=== PATIENT | female | born 1965 | race Asian ===

== ENCOUNTER → 2017-03-01 | Outpatient (CLI) | payer BC | LOC: MC.RAD 11:40 | DX: Z12.31 Encounter for screening mammogram for malignant neoplasm of breast (principal); N63 Unspecified lump in breast ==

== ENCOUNTER → 2017-03-08 | Outpatient (CLI) | payer BC | LOC: MC.RAD 03-07 10:30 | DX: R92.2 Inconclusive mammogram (principal); N63 Unspecified lump in breast ==

== ENCOUNTER → 2017-03-15 | Outpatient (CLI) | payer BC | LOC: MC.RAD 13:00 | DX: N63 Unspecified lump in breast (principal) ==

== ENCOUNTER → 2017-03-15 | Outpatient (CLI) | payer BC | LOC: ZCOL.LAB 15:14 | DX: Z01.89 Encounter for other specified special examinations (principal) ==

== ENCOUNTER → 2018-04-18 | Outpatient (CLI) | payer BC | LOC: MC.RAD 08:40 | DX: Z12.31 Encounter for screening mammogram for malignant neoplasm of breast (principal) ==

== ENCOUNTER → 2019-05-07 | Outpatient (CLI) | payer BC | LOC: MC.RAD 11:45 | DX: Z12.31 Encounter for screening mammogram for malignant neoplasm of breast (principal) ==

== ENCOUNTER → 2020-06-21 | Outpatient (CLI) | payer BC | LOC: MC.RAD 05-20 09:30 | DX: Z12.31 Encounter for screening mammogram for malignant neoplasm of breast (principal) ==

== ENCOUNTER → 2021-07-24 | Outpatient (CLI) | payer BC | LOC: MC.RAD 09:15 | DX: Z12.31 Encounter for screening mammogram for malignant neoplasm of breast (principal) ==